=== PATIENT | female | born 1970 | race Hispanic/Latino ===

== ENCOUNTER 2020-05-30 18:30 | Inpatient (IN) | payer OTHER, SELFPAY ==
[2020-05-30 19:00] LABS: Absolute Lymphocytes (CBC) 2.2 K/uL (0.7-4.9); Basophils % 0.7 % (0-1.3); Hematocrit 36.8 % (36.0-45.0); Lymphocytes % 24.1 % (15.3-44.8); MPV 9.3 fL (7.6-11.3); RBC Red Blood Cell Count 4.05 M/uL (3.86-4.86)
[2020-05-30 19:15] LABS: Potassium 3.9 mmol/L (3.5-5.1)
[2020-05-30] MEDS ORDERED: ONDANSETRON 4 MG/2 ML VIAL ONE (19:21)
[2020-05-30] MEDS ORDERED: MORPHINE 4 MG/ML SYR ONE ×2 (19:21→20:54)
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
[2020-05-30] MEDS ORDERED: IBUPROFEN 400 MG TAB ONE (19:44)
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
[2020-05-30 21:42] VITALS: BMI 28.3
[2020-05-30] MEDS: NA CHLORIDE 0.9% 1,000 ML IV SCH ×2 (22:06→22:15)
[2020-05-31] MEDS: ONDANSETRON 4 MG/2 ML VIAL IV PRN ×4 (00:50→20:55)
[2020-05-31] MEDS: MORPHINE 4 MG/ML SYR IV PRN ×4 (00:50→20:55)
[2020-05-31] MEDS: NA CHLORIDE 0.9% 1,000 ML IV SCH ×2 (05:41→15:44)
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
[2020-05-31 11:14] LABS: Hematocrit 30.3 % (36.0-45.0)
[2020-05-31 18:47] LABS: Hematocrit 30.1 % (36.0-45.0)
[2020-06-01] MEDS: NA CHLORIDE 0.9% 1,000 ML IV SCH ×2 (00:18→05:53)
[2020-06-01 10:14] VITALS: O2SAT 98
[2020-06-01 14:47] VITALS: BP 114/56; TEMP 97.7
== END 2020-06-01 17:29 | disposition home health service (06) | DRG 395 ==
LOC: ER 18:30 → ERHOLD 20:15 → 2ND 21:15 → OBSVTOIN 05-31 09:13
PROVIDERS: ADMIT Surgery; ATTEND Surgery
DX: K66.1 Hemoperitoneum (principal); S10.83XA Contusion of other specified part of neck, initial encounter; S30.1XXA Contusion of abdominal wall, initial encounter; V43.62XA Car passenger injured in collision with other type car in traffic accident, initial encounter; Z20.828 Contact with and (suspected) exposure to other viral communicable diseases
CPT/HCPCS: 36415; 70450; 71260; 72125; 74177; 80048; 82565; 85014; 85018; 85025; 86850; 86900; 86901; 96374; 96375; 99285; G0378; G0390; J2405; J7030; Q9967; U0002